=== PATIENT | female | born 2000 | race Two or more races ===

== ENCOUNTER 2021-04-23 06:14 | Day surgery (SDC) | payer MEDICAID ==
[~2021-04-23] VITALS: Ht 162.6 cm; Wt 61.4 kg
[2021-04-23] MEDS ORDERED: CHLORHEXIDINE 15 ML UDC ONE (06:41)
[2021-04-23] MEDS ORDERED: NO HOME MEDS PER PT (06:47)
[2021-04-23] MEDS ORDERED: EPINEPHRINE 1 MG/ML, 1ML ONE (06:51)
[2021-04-23] MEDS ORDERED: BUPIVACAINE/PF 0.5% ONE (06:51)
[2021-04-23] MEDS ORDERED: MIDAZOLAM 1 MG/ML, 2ML ONE (06:54)
[2021-04-23] MEDS ORDERED: FENTANYL PF 250 MCG/5ML ONE (06:54)
[2021-04-23 06:56] VITALS: BP 113/63
[2021-04-23] MEDS ORDERED: NEOSTIGMINE 1 MG/ML, 10ML ONE (06:56)
[2021-04-23] MEDS ORDERED: GLYCOPYRROLATE 0.2MG/1ML, 5ML ONE (06:56)
[2021-04-23] MEDS ORDERED: ROCURONIUM 10MG/ML,5ML ONE (06:56)
[2021-04-23] MEDS ORDERED: ONDANSETRON 2MG/ML, 2ML ONE (06:56)
[2021-04-23] MEDS ORDERED: DEXAMETHASONE 4 MG/ML, 1ML ONE (06:56)
[2021-04-23] MEDS ORDERED: CEFAZOLIN 1,000 MG ONE (06:56)
[2021-04-23] MEDS ORDERED: PROPOFOL 10 MG/ML, 20ML ONE (06:56)
[2021-04-23] MEDS ORDERED: LACTATED RINGERS 1,000 ML IV SCH (07:00)
[2021-04-23] MEDS ORDERED: CHLORHEXIDINE 15 ML UDC PO ONE (07:00)
[2021-04-23] MEDS ORDERED: PROPOFOL 150 ML ONE (07:29)
[2021-04-23 07:41] LABS: HCG UR SG 1.034 (1.003-1.030)
[2021-04-23 07:56] LABS: PROTHROMBIN TIME 10.7 Seconds (9.6-11.5)
[2021-04-23] MEDS ORDERED: LABETALOL 5MG/ML, 20ML IV PRN (08:30)
[2021-04-23] MEDS ORDERED: MIDAZOLAM 1 MG/ML, 2ML IV PRN (08:30)
[2021-04-23] MEDS ORDERED: FENTANYL PF 100 MCG/2ML IV PRN (08:30)
[2021-04-23] MEDS ORDERED: OXYcodone 5 MG/5 ML ORAL.SOL UDC PO PRN (08:30)
[2021-04-23] MEDS ORDERED: HYDROmorphone 1 MG/ML, 1ML INJ IVPush PRN (08:30)
[2021-04-23] MEDS ORDERED: PROMETHAZINE 25 MG/ML, 1ML IVPush PRN (08:30)
[2021-04-23] MEDS ORDERED: HYDR-2214 PO (08:49)
[2021-04-23] MEDS ORDERED: KETOROLAC 30 MG/1 ML ONE (09:02)
[2021-04-23] MEDS ORDERED: FENTANYL PF 100 MCG/2ML ONE (09:05)
[2021-04-23] MEDS ORDERED: ACETAMINOPHEN 650 MG/20.3 ML UDC ONE (09:05)
[2021-04-23] MEDS ORDERED: MEPERIDINE/PF 25MG/ML,1ML ONE (09:05)
[2021-04-23] MEDS ORDERED: OXYcodone 5 MG/5 ML ORAL.SOL UDC ONE (09:06)
[2021-04-23] MEDS: MEPERIDINE/PF 25MG/0.5ML IVPush PRN ×2 (09:10→09:25)
[2021-04-23] MEDS ORDERED: KETOROLAC 30 MG/1 ML IVPush PRN (09:30)
== END 2021-04-23 11:10 | disposition home or self-care (01) ==
LOC: OUT 06:14 → MERGE 11:00 → OUT 11:10
PROVIDERS: ATTEND Surgery
DX: K80.12 Calculus of gallbladder with acute and chronic cholecystitis without obstruction (principal); K82.8 Other specified diseases of gallbladder; Z79.01 Long term (current) use of anticoagulants; Z79.899 Other long term (current) drug therapy; Z80.3 Family history of malignant neoplasm of breast; Z82.49 Family history of ischemic heart disease and other diseases of the circulatory system
CPT/HCPCS: 36415; 47562; 81025; 85610; 88304; J0171; J0690; J1100; J1885; J2175; J2250; J2405; J2704; J2710; J3010; J7120